=== PATIENT | female | born 2000 | race Caucasian/White ===

== ENCOUNTER 2020-10-26 09:12 | Emergency (ER) | payer MEDICAID ==
[2020-10-26 09:49] LABS: BASO # 0.01 (0.02-0.10); EOS # 0.03 (0.04-0.40); EOS % 0.3 % (1.0-5.0); HEMATOCRIT 43.3 % (37.0-47.0); HEMOGLOBIN 14.6 g/dL (12.5-16.0); LYMPH# 0.86 (1.50-4.00); MEAN CELL VOLUME 84 fl (78-100); MEAN CORPUSCULAR HEMOGLOBIN 28 pg (27-31); MEAN CORPUSCULAR HGB CONC 34 g/dL (33-37); MEAN PLATELET VOLUME 9.7 fl (7.4-10.4); MONO # 0.78 (0.20-0.80); NEU # 7.32 (1.40-6.50); PLATELET COUNT 236 K/mm3 (130-400); RED BLOOD COUNT 5.17 M/mm3 (4.10-5.30); RED CELL DISTRIBUTION WIDTH 12.1 % (11.5-14.5)
[2020-10-26 09:58] LABS: ALBUMIN 4.2 g/dL (3.5-5.0); POTASSIUM 4.1 mmol/L (3.5-5.1); SODIUM 137 mmol/L (136-145)
[2020-10-26 09:59] LABS: CALCIUM 9.9 mg/dL (8.3-10.5)
[2020-10-26 10:00] LABS: GLUCOSE 107 mg/dL (65-105); TOTAL PROTEIN 7.6 g/dL (6.4-8.3)
[2020-10-26 10:01] LABS: CARBON DIOXIDE 22 mmol/L (22-29)
[2020-10-26 10:05] LABS: AST-SGOT 46 U/L (5-34)
[2020-10-26 10:07] LABS: ALT/SGPT 60 U/L (0-55); LIPASE 31 U/L (8-78)
[2020-10-26 10:15] LABS: TROPONIN-I < 0.03 ng/mL (<0.030)
[2020-10-26 12:27] LABS: URINE APPEARANCE HAZY; URINE BILIRUBIN NEGATIVE (NEGATIVE); URINE BLOOD 250 ery/uL (NEGATIVE); URINE COLOR YELLOW; URINE GLUCOSE NEGATIVE (NEGATIVE); URINE KETONE NEGATIVE (NEGATIVE); URINE LEUKOCYTE ESTERASE NEGATIVE (NEGATIVE); URINE MUCUS PRESENT (NOT PRESENT); URINE NITRATE NEGATIVE (NEGATIVE); URINE PROTEIN(semi-quant) NEGATIVE (NEGATIVE); URINE UROBILINOGEN NORMAL (NORMAL)
[2020-10-26] MEDS ORDERED: PROTONIX20 M1 PO ×2 (12:40→12:41)
[2020-10-26 12:52] VITALS: BP 100/61
== END 2020-10-26 12:53 | disposition home or self-care (01) ==
LOC: ED 09:12
PROVIDERS: Physician Assistant
DX: K21.9 Gastro-esophageal reflux disease without esophagitis (principal); F17.210 Nicotine dependence, cigarettes, uncomplicated; Z32.02 Encounter for pregnancy test, result negative
CPT/HCPCS: J1885

== ENCOUNTER 2020-12-04 03:14 | Emergency (ER) | payer MEDICAID ==
[~2020-12-04 03:14] MED LIST: PROTONIX20 M1 PO
[2020-12-04] MEDS ORDERED: PROTONIX20 M1 PO (04:01)
[2020-12-04 04:07] VITALS: BP 107/66
== END 2020-12-04 04:08 | disposition home or self-care (01) ==
LOC: ED 03:14
DX: K21.9 Gastro-esophageal reflux disease without esophagitis (principal); F17.210 Nicotine dependence, cigarettes, uncomplicated; Z79.899 Other long term (current) drug therapy